=== PATIENT | male | born 1965 | race Caucasian/White ===

== ENCOUNTER 2019-01-12 09:33 | Day surgery (SDC) | payer BC ==
[~2019-01-12] VITALS: Ht 170.2 cm; Wt 96.0 kg
[2019-01-12 10:10] VITALS: Ht 170.2 cm; Wt 96.0 kg
[2019-01-12] MEDS ORDERED: LINA72CA PO (10:23)
[2019-01-12] MEDS ORDERED: LOSARTAN PO (10:23)
[2019-01-12] MEDS ORDERED: TESTOSTERONE (10:23)
[2019-01-12] MEDS ORDERED: DICL25TA11 PO (10:23)
[2019-01-12 10:59] VITALS: BP 140/88; PULSE 58; RESP 20
[2019-01-12] MEDS ORDERED: MIDAZOLAM 1 MG/ML 2 ML INJ ONE (10:59)
[2019-01-12] MEDS ORDERED: LIDOCAINE 2% (SDV) 5 ML INJ ONE (10:59)
[2019-01-12] MEDS ORDERED: PROPOFOL 20 ML ONE (10:59)
[2019-01-12] MEDS ORDERED: ETOMIDATE 20 MG INJ ONE (11:00)
[2019-01-12] MEDS ORDERED: FENTAnyl 50 MCG/ML VIAL ONE (11:00)
[2019-01-12] MEDS ORDERED: LIDOCAINE 4% SOLUTION 50 ML BTL ONE (11:00)
--- NOTE | 2019-01-12 11:07 | PREAC ---
Date/Time of Note Date/Time of Note DATE: 01/12/19 TIME: 11:06 Anesthesia Eval and Record Evaluation Time Pre-Procedure Interview DATE: 01/12/19 TIME: 11:06 Age 54 Sex male NPO: 8 hrs Preoperative diagnosis reflux esophagitis and screening Planned procedure egd and colonoscopy Past Medical History Past Medical History: Includes Cardio: HTN Pulm: Smoking Hx Musculoskeletal: Osteoarthritis Surgery & Anesthesia Issues No known issue Meds Anticoagulation: No Beta Casey within 24 hr: No Reason Beta Casey not given: Pt. not on B-Casey Reported Medications [Testosterone] No Conflict Check 01/12/19 [Losartan] No Conflict Check, 25 MG PO 01/12/19 Diclofenac Sodium* (Diclofenac Sodium*) 25 Mg Tablet.dr, 35 MG PO DAILY, #60 TAB 01/12/19 Linaclotide (Linzess) 72 Mcg Capsule, 72 MCG PO, CAP 01/12/19 Meds reviewed: Yes Allergies Coded Allergies: No Known Allergy (Unverified , 01/12/19) Allergies Reviewed: Yes Labs/Studies Labs Reviewed: Reviewed by anesthesiologist test: N/A Pre-procedure Exam Last vitals Vital Signs Date Temp Pulse Resp B/P (MAP) Pulse Ox O2 O2 Flow FiO2 Time Delivery Rate 01/12/19 98.0 58 20 140/88 97 Room Air 10:59 (105) Airway: Adequate mouth opening, Adequate thyromental dist Mallampati: Mallampati III Teeth: Normal Lung: Normal Heart: Normal ASA Physical Status ASA physical status: 2 Emergency: None Pre-operative Attestations Prior to commencing anesthesia and surgery, the patient was re-evaluated, there was verification of: *The patient's identity *The results of appropriate recent lab work and preoperative vital signs *The above evaluation not changing prior to induction *Anesthetic plan, risk benefits, alternative and complications discussed with patient/family; questions answered; patient/family understands, accepts and wishes to proceed. JACE HANCOCK DO Jan 12, 2019 11:07
--- NOTE | 2019-01-12 12:14 | PAC ---
Date/Time of Note Date/Time of Note DATE: 01/12/19 TIME: 12:14 Post-Anesthesia Notes Post-Anesthesia Note Last documented vital signs Vital Signs Date Temp Pulse Resp B/P (MAP) Pulse Ox O2 O2 Flow FiO2 Time Delivery Rate 01/12/19 98 65 20 120/65 97 Room Air 1214 Activity: WNL Respiratory function: WNL Cardiovascular function: WNL Mental status: Baseline Pain reasonably controlled: Yes Hydration appropriate: Yes Nausea/Vomiting absent: Yes JACE HANCOCK DO Jan 12, 2019 12:14
[2019-01-12 12:37] VITALS: BP 136/82; PULSE 66; RESP 19
== END 2019-01-12 17:45 | disposition home or self-care (01) ==
LOC: GIL 09:33
PROVIDERS: ATTEND Internal Medicine Gastroenterology
DX: Z12.11 Encounter for screening for malignant neoplasm of colon (principal); K29.30 Chronic superficial gastritis without bleeding; K64.8 Other hemorrhoids
CPT/HCPCS: 43239; 45378; 88305; 88312; J2250; J3010